=== PATIENT | male | born 1950 | race Caucasian/White ===

== ENCOUNTER 2016-11-16 12:11 | Emergency (ER) | payer MEDICARE ==
[~2016-11-16 12:11] MED LIST: Sodium Chloride 0.9% 1,000 ML BAG ONE
[2016-11-16] MEDS ORDERED: Diphenoxylate HCl/Atropine Tablet ONE (12:50)
[2016-11-16] MEDS ORDERED: Metoclopramide HCl 10 MG/2 ML VIAL ONE (12:51)
[2016-11-16] MEDS ORDERED: Ondansetron HCl/PF 4 MG/2 ML Vial ONE (12:51)
[2016-11-16 13:18] LABS: #Basophils 0.1 thou/uL (0.0-0.2); #Eosinphils 0.2 thou/uL (0.0-0.7); #Monocytes 0.6 thou/uL (0.11-0.59); #Neutrophils 7.6 thou/uL (1.40-6.50); %Basophils 0.8 % (0.0-1.0); %Eosinophils 1.7 % (0.0-10.0); %Lymphocytes 10.9 % (21.0-51.0); %Monocytes 6.1 % (0.0-10.0); %Neutrophils 80.5 % (42.0-75.0); Hemoglobin 17.6 g/dL (14.0-18.0); Mean Corpuscular HGB CONC 32.8 g/dL (32.0-36.0); Mean Corpuscular Hemoglobin 30.2 pg (27.0-31.0); Mean Corpuscular Volume 92.1 fl (80.0-94.0); Mean Platelet Volume 8.1 fL (7.4-10.4); Platelet Count 262 thou/uL (130-400); RBC Distribution Width 12.1 % (11.5-14.5); Red Blood Cell (RBC) Count 5.82 mill/uL (4.70-6.10); White Blood Cell (WBC) Count 9.5 thou/uL (4.8-10.8)
[2016-11-16 13:33] LABS: ALT (SGPT) 37 U/L (0-55); AST (SGOT) 27 U/L (5-34); Albumin 5.1 g/dL (3.4-4.8); Alkaline Phosphatase 113 U/L (40-150); Amylase 100 U/L (25-125); Anion Gap 18 mmol/L (10-20); BUN (Urea Nitrogen) 17 mg/dL (8.4-25.7); Bilirubin, Total 1.1 mg/dL (0.2-1.2); Calc. Creatinine Clearance 0 mL/min (70-130); Calcium 10.3 mg/dL (7.8-10.44); Carbon Dioxide 24 mmol/L (23-31); Chloride 101 mmol/L (98-107); Estimated GFR-MDRD 61; Globulin 3.3 g/dL (2.4-3.5); Glucose 128 mg/dL (80-115); Lipase 48 U/L (8-78); Potassium 4.3 mmol/L (3.5-5.1); Protein, Total 8.4 g/dL (5.8-8.1); Sodium 139 mmol/L (136-145)
== END 2016-11-16 16:05 | disposition home or self-care (01) ==
LOC: MADERS 12:11
DX: R19.7 Diarrhea, unspecified (principal); R11.2 Nausea with vomiting, unspecified; E03.9 Hypothyroidism, unspecified; I10 Essential (primary) hypertension; F32.9 Major depressive disorder, single episode, unspecified; Z79.82 Long term (current) use of aspirin; Z79.899 Other long term (current) drug therapy
CPT/HCPCS: 80053; 82150; 83690; 85025; 96361; 96374; 96375; J2405; J2765; J7050

== ENCOUNTER 2017-03-23 09:53 | Outpatient (CLI) | payer MEDICARE ==
[2017-03-23 10:42] LABS: ALT (SGPT) 32 U/L (8-55); AST (SGOT) 23 U/L (5-34); Albumin 4.4 g/dL (3.4-4.8); Alkaline Phosphatase 84 U/L (40-150); Anion Gap 13 mmol/L (10-20); BUN (Urea Nitrogen) 22 mg/dL (8.4-25.7); Bilirubin, Total 0.8 mg/dL (0.2-1.2); Calc. Creatinine Clearance 0 mL/min (70-130); Calcium 9.3 mg/dL (7.8-10.44); Carbon Dioxide 26 mmol/L (23-31); Cardiac Risk 7.1 (Less than 4.5); Chloride 102 mmol/L (98-107); Cholesterol 240 mg/dl (< 200 Desired); Estimated GFR-MDRD 86; Globulin 3.3 g/dL (2.4-3.5); Glucose 109 mg/dL (80-115); HDL Cholesterol 34 mg/dL (>60 Neg Risk); LDL Cholesterol, Calculated 177 mg/dL; Potassium 4.1 mmol/L (3.5-5.1); Protein, Total 7.7 g/dL (5.8-8.1); Sodium 137 mmol/L (136-145); Triglycerides 147 mg/dL (Less than 150)
[2017-03-23 10:59] LABS: Free T4 (Free Thyroxine) 1.21 ng/dL (0.70-1.48); Thyroid Stimulating Hormone 2.2058 uIU/mL (0.35-4.94)
== END 2017-03-23 09:54 | disposition home or self-care (01) ==
LOC: MADLAB 09:53
PROVIDERS: ATTEND Internal Medicine Endocrinology, Diabetes & Metabolism
DX: E89.0 Postprocedural hypothyroidism (principal); C73 Malignant neoplasm of thyroid gland
CPT/HCPCS: 36415; 80053; 80061; 84439; 84443

== ENCOUNTER 2017-09-30 12:16 | Emergency (ER) | payer MEDICARE ==
[~2017-09-30 12:16] MED LIST changes: -Sodium Chloride 0.9% 1,000 ML BAG ONE; +Sodium Chloride Irrig Solution 250 ML BOT ONE
--- NOTE | 2017-09-30 14:52 | RAD ---
THREE VIEWS OF THE RIGHT MIDDLE FINGER. COMPARISON: None. HISTORY: Middle finger injury with pain and swelling. FINDINGS: Three views of the right middle finger show a comminuted fracture of the tuft of the distal phalanx w ith overlying soft tissue swelling. No dislocation is seen. IMPRESSION: Comminuted fracture of the tuft of the distal phalanx. POS: NNEKA
[2017-09-30] MEDS ORDERED: Adacel (T-DAP) 0.5 ML VIAL ONE (16:13)
[2017-09-30] MEDS ORDERED: HYDROcodone/Acetaminophen 10/325 mg Tablet ONE (16:16)
[2017-09-30] MEDS ORDERED: Cephalexin 250 MG/5 ML Oral Suspension ONE (16:16)
[2017-09-30] MEDS ORDERED: Naproxen 500 MG TAB ONE (16:16)
[2017-09-30] MEDS ORDERED: Cephalexin 500 MG CAP ONE (16:17)
== END 2017-09-30 16:15 | disposition home or self-care (01) ==
LOC: MADERS 12:16
DX: S62.632A Displaced fracture of distal phalanx of right middle finger, initial encounter for closed fracture (principal); E03.9 Hypothyroidism, unspecified; I10 Essential (primary) hypertension; F32.9 Major depressive disorder, single episode, unspecified; Z79.899 Other long term (current) drug therapy; W31.89XA Contact with other specified machinery, initial encounter
CPT/HCPCS: 90471; 90715

== ENCOUNTER 2018-05-08 10:40 | Outpatient (CLI) | payer MEDICARE ==
--- NOTE | 2018-05-08 12:06 | RAD ---
LEFT KNEE 4 VIEWS: Date: 05/08/18 HISTORY: Chronic left knee pain. FINDINGS/IMPRESSION: There are mild to moderate degenerative changes. No fracture, dislocation, or bony destruction is see n. POS: OFF
== END 2018-05-08 10:41 | disposition home or self-care (01) ==
LOC: MADLAB 10:40
PROVIDERS: ATTEND Family Medicine
DX: M25.562 Pain in left knee (principal); M17.12 Unilateral primary osteoarthritis, left knee

== ENCOUNTER 2019-11-13 11:05 | Outpatient (CLI) | payer MEDICARE ==
--- NOTE | 2019-11-13 11:55 | RAD ---
PA AND LATERAL VIEWS CHEST: Date: 11/13/2019 HISTORY: Dyspnea on exertion. COMPARISON: 01/07/2015. FINDINGS/IMPRESSION: The heart size is enlarged. The lungs are expanded without lobar consolidation, pneumothoraces, or la rge effusions. There is mild prominence of the pulmonary vascularity. POS: NNEKAH
== END 2019-11-13 11:06 | disposition home or self-care (01) ==
LOC: MADRAD 11:05
PROVIDERS: ATTEND Family Medicine
DX: R06.09 Other forms of dyspnea (principal); J98.4 Other disorders of lung
CPT/HCPCS: 71046

== ENCOUNTER 2019-11-23 14:01 | Emergency (ER) | payer MEDICARE ==
[~2019-11-23 14:01] MED LIST changes: +Iopamidol 370 76% 125 ML VIAL FS ONE; -Sodium Chloride Irrig Solution 250 ML BOT ONE
--- NOTE | 2019-11-23 15:21 | RAD ---
Chest one view HISTORY: Dyspnea. COMPARISON: 11/13/2019. FINDINGS: Cardiac silhouette is magnified, enlarged, and partially obscured by chronic opacity at the left base. Mediastinum is midline. Pulmonary vasculature remains engorged. Upper lobes are clear. No evidence of pneumothorax. IMPRESSION: Pulmonary vascular congestion and cardiomegaly. Chronic-type findings are stable.
[2019-11-23 15:41] LABS: #Basophils 0.1 thou/uL (0.0-0.2); #Eosinphils 0.2 thou/uL (0.0-0.7); #Lymphocytes 0.9 thou/uL (1.20-3.40); #Monocytes 0.5 thou/uL (0.11-0.59); #Neutrophils 4.9 thou/uL (1.40-6.50); %Basophils 1.1 % (0.0-1.0); %Eosinophils 2.7 % (0.0-10.0); %Lymphocytes 13.4 % (21.0-51.0); %Monocytes 8.1 % (0.0-10.0); %Neutrophils 74.7 % (42.0-75.0); Hemoglobin 15.8 g/dL (14.0-18.0); Mean Corpuscular HGB CONC 30.8 g/dL (32.0-36.0); Mean Corpuscular Hemoglobin 28.9 pg (27.0-31.0); Mean Corpuscular Volume 93.8 fL (78.0-98.0); Platelet Count 237 thou/uL (130-400); RBC Distribution Width 13.2 % (11.5-14.5); Red Blood Cell (RBC) Count 5.47 mill/uL (4.70-6.10); White Blood Cell (WBC) Count 6.5 thou/uL (4.8-10.8)
[2019-11-23 15:58] LABS: ALT (SGPT) 130 U/L (8-55); AST (SGOT) 96 U/L (5-34); Albumin 4.2 g/dL (3.4-4.8); Alkaline Phosphatase 92 U/L (40-110); Anion Gap 15 mmol/L (10-20); BUN (Urea Nitrogen) 19 mg/dL (8.4-25.7); Bilirubin, Total 0.6 mg/dL (0.2-1.2); Calc. Creatinine Clearance 0 mL/min (70-130); Calcium 8.6 mg/dL (7.8-10.44); Carbon Dioxide 23 mmol/L (23-31); Chloride 110 mmol/L (98-107); Estimated GFR-MDRD 54; Globulin 2.4 g/dL (2.4-3.5); Glucose 109 mg/dL (80-115); Potassium 4.2 mmol/L (3.5-5.1); Protein, Total 6.6 g/dL (5.8-8.1); Sodium 144 mmol/L (136-145)
[2019-11-23 16:18] LABS: CKMB 2.2 ng/mL (0-6.6)
--- NOTE | 2019-11-23 16:54 | CT ---
[facility] COMPARISON:None available HISTORY:Shortness of breath, elevated d-dimer TECHNIQUE: Serial axial CT imaging at2.5 mm intervals from thethoracic inlet through the upper abdome n with IV contrast using CT angiogram protocol. Coronal and oblique sagittal 3-D reformatted imaging obtained. Findings:There is no axillary lymphadenopathy noted. The heart is prominent. The imaged upper abdomen demonstrates a small hiatal hernia. Soft tissue density in the subcarinal region suggests mild lymphadenopathy, measuring up to 1.5 cm in short axis dimension. Mildly enlarged 1 cm AP window lymph node noted. Mildly enlarged prevascular node measures 1.1 cm. Multiple mildly enlarged superior mediastinal lymph nodes are noted, measuring up to 1.2 cm in short axis dimension. There are small bilateral pleural effusions, right larger than left. No significant pericardial or me diastinal fluid. No discrete pulmonary arterial filling defect is seen to suggest the presence of acute pulmonary gino rial embolism. There is mild linear interstitial density in the perihilar regions and both lung bases. No alveolar o pacity/groundglass opacity. No focal consolidation. Review of the osseous structures demonstrates no worrisome lytic or blastic bone lesion. IMPRESSION: Small bilateral pleural effusions with mild bibasilar and perihilar interstitial prominen ce. Findings suggest pulmonary edema in the proper clinical setting. No evidence for acute pulmonary arterial embolism. Nonspecific lymphadenopathy noted within the mediastinum. This may be reactive in nature. Clinical co rrelation is essential. Recommend follow-up CT examination of the chest in 3 months. CODE T
[2019-11-23] MEDS ORDERED: Furosemide 40 MG/4 ML VIAL ONE (17:27)
[2019-11-23] MEDS ORDERED: Aspirin Chewable 81 MG TAB ONE (17:27)
== END 2019-11-23 18:38 | disposition short-term general hospital (02) ==
LOC: MADERS 14:01
DX: I11.0 Hypertensive heart disease with heart failure (principal); I50.9 Heart failure, unspecified; E03.9 Hypothyroidism, unspecified; F32.9 Major depressive disorder, single episode, unspecified; Z79.899 Other long term (current) drug therapy
CPT/HCPCS: 71045; 71275; 80053; 82553; 83880; 84484; 85025; 85379; 93005; 96374; J1940; Q9967

== ENCOUNTER 2020-12-26 08:54 | Emergency (ER) | payer MEDICARE | END 2020-12-26 09:35 | disposition home or self-care (01) | LOC: MADERS 08:54 | DX: M54.5 Low back pain (principal); E03.9 Hypothyroidism, unspecified; I10 Essential (primary) hypertension; I25.10 Atherosclerotic heart disease of native coronary artery without angina pectoris; Z79.899 Other long term (current) drug therapy | CPT/HCPCS: 99283 ==

== ENCOUNTER 2021-06-10 14:16 | Emergency (ER) | payer MEDICARE ==
[2021-06-10] MEDS ORDERED: Lactated Ringer's 1,000 ML ONE (15:06)
[2021-06-10 15:10] LABS: #Basophils 0.1 thou/uL (0.0-0.2); #Eosinphils 0.2 thou/uL (0.0-0.7); #Lymphocytes 1.1 thou/uL (1.20-3.40); #Monocytes 0.4 thou/uL (0.11-0.59); #Neutrophils 3.6 thou/uL (1.40-6.50); %Basophils 1.5 % (0.0-1.0); %Eosinophils 3.2 % (0.0-10.0); %Lymphocytes 20.6 % (21.0-51.0); %Monocytes 7.4 % (0.0-10.0); %Neutrophils 67.3 % (42.0-75.0); Hemoglobin 15.3 g/dL (14.0-18.0); Mean Corpuscular HGB CONC 32.4 g/dL (32.0-36.0); Mean Corpuscular Volume 92.6 fL (78.0-98.0); Mean Platelet Volume 7.4 fL (7.4-10.4); Platelet Count 298 thou/uL (130-400); RBC Distribution Width 11.9 % (11.5-14.5); Red Blood Cell (RBC) Count 5.09 mill/uL (4.70-6.10); White Blood Cell (WBC) Count 5.4 thou/uL (4.8-10.8)
[2021-06-10 15:27] LABS: ALT (SGPT) 22 U/L (8-55); AST (SGOT) 18 U/L (5-34); Albumin 3.9 g/dL (3.4-4.8); Alkaline Phosphatase 82 U/L (40-110); Anion Gap 16 mmol/L (10-20); BUN (Urea Nitrogen) 18 mg/dL (8.4-25.7); Bilirubin, Total 0.5 mg/dL (0.2-1.2); Calc. Creatinine Clearance 0 mL/min (70-130); Calcium 9.1 mg/dL (7.8-10.44); Carbon Dioxide 21 mmol/L (23-31); Chloride 104 mmol/L (98-107); Globulin 2.7 g/dL (2.4-3.5); Glucose 115 mg/dL (83-110); Potassium 3.4 mmol/L (3.5-5.1); Protein, Total 6.6 g/dL (5.8-8.1); Sodium 138 mmol/L (136-145)
== END 2021-06-10 19:30 | disposition home or self-care (01) ==
LOC: MADERS 14:16
DX: I95.1 Orthostatic hypotension (principal); E55.9 Vitamin D deficiency, unspecified; I48.91 Unspecified atrial fibrillation; E03.9 Hypothyroidism, unspecified; I11.0 Hypertensive heart disease with heart failure; I50.9 Heart failure, unspecified; Z85.850 Personal history of malignant neoplasm of thyroid; Z79.899 Other long term (current) drug therapy
CPT/HCPCS: 36415; 71045; 80053; 83605; 83735; 84443; 84484; 85025; 93005; J7120

== ENCOUNTER 2021-07-05 07:33 | Outpatient (CLI) | payer MEDICARE ==
[2021-07-05 08:55] LABS: #Basophils 0.1 thou/uL (0.0-0.2); #Eosinphils 0.3 thou/uL (0.0-0.7); #Lymphocytes 0.8 thou/uL (1.20-3.40); #Monocytes 0.5 thou/uL (0.11-0.59); #Neutrophils 4.1 thou/uL (1.40-6.50); %Basophils 1.2 % (0.0-1.0); %Eosinophils 5.7 % (0.0-10.0); %Lymphocytes 13.8 % (21.0-51.0); %Monocytes 8.8 % (0.0-10.0); %Neutrophils 70.5 % (42.0-75.0); Hemoglobin 15.3 g/dL (14.0-18.0); Mean Corpuscular HGB CONC 31.7 g/dL (32.0-36.0); Mean Corpuscular Hemoglobin 29.8 pg (27.0-31.0); Mean Corpuscular Volume 93.9 fL (78.0-98.0); Mean Platelet Volume 8.5 fL (7.4-10.4); Platelet Count 278 thou/uL (130-400); RBC Distribution Width 12.1 % (11.5-14.5); Red Blood Cell (RBC) Count 5.14 mill/uL (4.70-6.10); White Blood Cell (WBC) Count 5.8 thou/uL (4.8-10.8)
[2021-07-05 09:09] LABS: ALT (SGPT) 22 U/L (8-55); AST (SGOT) 19 U/L (5-34); Albumin 4.1 g/dL (3.4-4.8); Alkaline Phosphatase 83 U/L (40-110); Anion Gap 13 mmol/L (10-20); BUN (Urea Nitrogen) 15 mg/dL (8.4-25.7); Bilirubin, Total 0.6 mg/dL (0.2-1.2); Calc. Creatinine Clearance 0 mL/min (70-130); Calcium 9.7 mg/dL (7.8-10.44); Carbon Dioxide 27 mmol/L (23-31); Cardiac Risk 5.5 (Less than 4.5); Chloride 105 mmol/L (98-107); Cholesterol 181 mg/dl (< 200 Desired); Globulin 3.1 g/dL (2.4-3.5); Glucose 105 mg/dL (83-110); HDL Cholesterol 33 mg/dL (>60 Neg Risk); LDL Cholesterol, Calculated 132 mg/dL; Protein, Total 7.2 g/dL (5.8-8.1); Sodium 141 mmol/L (136-145); Triglycerides 82 mg/dL (Less than 150)
== END 2021-07-05 07:34 | disposition home or self-care (01) ==
LOC: MADLAB 07:33
PROVIDERS: ATTEND Family Medicine
DX: E78.5 Hyperlipidemia, unspecified (principal); E03.9 Hypothyroidism, unspecified
CPT/HCPCS: 36415; 80053; 80061; 84443; 85025

== ENCOUNTER 2022-04-09 23:09 | Emergency (ER) | payer MEDICARE ==
[2022-04-10] MEDS ORDERED: HYDROcodone/Acetaminophen 5/325 mg Tablet ONE (00:21)
[2022-04-10] MEDS ORDERED: predniSONE 20 MG TAB ONE (00:21)
== END 2022-04-10 00:35 | disposition home or self-care (01) ==
LOC: MADERS 23:09
DX: M54.42 Lumbago with sciatica, left side (principal); I48.91 Unspecified atrial fibrillation; I25.10 Atherosclerotic heart disease of native coronary artery without angina pectoris; I11.0 Hypertensive heart disease with heart failure; I50.9 Heart failure, unspecified; E03.9 Hypothyroidism, unspecified; M19.90 Unspecified osteoarthritis, unspecified site; G47.33 Obstructive sleep apnea (adult) (pediatric); E55.9 Vitamin D deficiency, unspecified; Z85.850 Personal history of malignant neoplasm of thyroid; Z79.01 Long term (current) use of anticoagulants; Z79.899 Other long term (current) drug therapy; Z95.0 Presence of cardiac pacemaker
CPT/HCPCS: 99283; J7512

== ENCOUNTER 2022-04-13 23:47 | Emergency (ER) | payer MEDICARE ==
[~2022-04-13 23:47] MED LIST changes: +Iopamidol 370 76% 100 ML VIAL ONE; -Iopamidol 370 76% 125 ML VIAL FS ONE
[2022-04-14 00:19] LABS: #Lymphocytes 1.3 thou/uL (1.20-3.40); #Monocytes 0.5 thou/uL (0.11-0.59); #Neutrophils 8.2 thou/uL (1.40-6.50); %Basophils 0.5 % (0.0-1.0); %Eosinophils 0.1 % (0.0-10.0); %Lymphocytes 12.6 % (21.0-51.0); %Monocytes 4.8 % (0.0-10.0); %Neutrophils 81.9 % (42.0-75.0); Hemoglobin 15.2 g/dL (14.0-18.0); Mean Corpuscular HGB CONC 32.1 g/dL (32.0-36.0); Mean Corpuscular Volume 93.7 fL (78.0-98.0); Mean Platelet Volume 9.3 fL (7.4-10.4); Platelet Count 255 thou/uL (130-400); RBC Distribution Width 13.2 % (11.5-14.5); Red Blood Cell (RBC) Count 5.07 mill/uL (4.70-6.10)
[2022-04-14 00:36] LABS: Base Excess-Venous -2.2 mmol/L (-2.0 to 3.0); Bicarbonate (HCO3v) 23.3 mmol/L (22.0-28.0); CO2 Tension (PvCO2) 41.8 mmHg (42.0-51.0); Calcium, Ionized 1.13 mmol/L (1.15-1.33); Chloride 104 mmol/L (98-107); Hemoglobin - Calc 16.8 g/dL (14.0-18.0); Potassium 4.2 mmol/L (3.5-5.1); Sodium 139 mmol/L (138-145); T. Carbon Dioxide 24.6 mmol/L (22.0-28.0); vO2 Saturation-calc 89.2 % (60.0-85.0)
[2022-04-14 00:42] LABS: ALT (SGPT) 1030 U/L (8-55); AST (SGOT) 647 U/L (5-34); Albumin 4.1 g/dL (3.4-4.8); Alkaline Phosphatase 256 U/L (40-110); Anion Gap 17 mmol/L (10-20); BUN (Urea Nitrogen) 41 mg/dL (8.4-25.7); Bilirubin, Total 1.7 mg/dL (0.2-1.2); Calc. Creatinine Clearance 0 mL/min (70-130); Calcium 8.9 mg/dL (7.8-10.44); Carbon Dioxide 23 mmol/L (23-31); Chloride 102 mmol/L (98-107); Estimated GFR 44; Globulin 2.6 g/dL (2.4-3.5); Glucose 161 mg/dL (83-110); Lipase 31 U/L (8-78); Magnesium 2.6 mg/dL (1.6-2.6); Potassium 4.4 mmol/L (3.5-5.1); Protein, Total 6.7 g/dL (5.8-8.1); Sodium 138 mmol/L (136-145)
[2022-04-14 01:03] LABS: CKMB 1.8 ng/mL (0-6.6)
[2022-04-14 01:14] LABS: SARS-CoV-2 NAA Rapid Test DETECTED (NotDetected)
[2022-04-14] MEDS ORDERED: Furosemide 40 MG/4 ML VIAL ONE (01:16)
[2022-04-14 01:40] LABS: Alcohol Less than 10 mg/dL (Less than 10); Salicylate Less than 8.0 mg/dL (15.0-30.0)
== END 2022-04-14 03:05 | disposition short-term general hospital (02) ==
LOC: MADERS 23:47
DX: U07.1 COVID-19 (principal); I11.0 Hypertensive heart disease with heart failure; I50.9 Heart failure, unspecified; K72.00 Acute and subacute hepatic failure without coma; R77.8 Other specified abnormalities of plasma proteins; I48.91 Unspecified atrial fibrillation; I25.10 Atherosclerotic heart disease of native coronary artery without angina pectoris; E03.9 Hypothyroidism, unspecified; M19.90 Unspecified osteoarthritis, unspecified site; G47.30 Sleep apnea, unspecified; E55.9 Vitamin D deficiency, unspecified; Z85.850 Personal history of malignant neoplasm of thyroid; Z79.01 Long term (current) use of anticoagulants; Z79.899 Other long term (current) drug therapy
CPT/HCPCS: 71045; 74177; 80053; 80307; 82330; 82435; 82553; 82803; 83690; 83735; 83880; 84132; 84295; 84484; 85014; 85025; 93005; U0002; 96374; J1940; Q9967

== ENCOUNTER 2022-11-27 18:52 | Emergency (ER) | payer MEDICARE ==
[2022-11-27 19:39] LABS: #Eosinphils 0.3 thou/uL (0.0-0.7); #Lymphocytes 0.5 thou/uL (1.20-3.40); #Monocytes 0.5 thou/uL (0.11-0.59); #Neutrophils 2.6 thou/uL (1.40-6.50); %Eosinophils 7.7 % (0.0-10.0); %Lymphocytes 12.5 % (21.0-51.0); %Monocytes 13.1 % (0.0-10.0); %Neutrophils 65.7 % (42.0-75.0); Hemoglobin 11.4 g/dL (14.0-18.0); Mean Corpuscular HGB CONC 34.4 g/dL (32.0-36.0); Mean Corpuscular Hemoglobin 31.8 pg (27.0-31.0); Mean Corpuscular Volume 92.6 fl (78.0-98.0); Mean Platelet Volume 5.2 fL (7.4-10.4); Platelet Count 175 10x3/uL (130-400); RBC Distribution Width 17.8 % (11.5-14.5); Red Blood Cell (RBC) Count 3.59 mill/uL (4.70-6.10); White Blood Cell (WBC) Count 3.9 10x3/uL (4.8-10.8)
[2022-11-27 19:49] LABS: INR-International Normal Ratio 2.1; Prothrombin Time 24.2 sec (12.0-14.7)
[2022-11-27 19:50] LABS: PTT 40.8 sec (22.9-36.1)
[2022-11-27 19:54] LABS: Anion Gap 10 mmol/L (10-20); BUN (Urea Nitrogen) 16 mg/dL (8.4-25.7); Calc. Creatinine Clearance 0 mL/min (70-130); Calcium 8.2 mg/dL (7.8-10.44); Carbon Dioxide 31 mmol/L (23-31); Chloride 102 mmol/L (98-107); Estimated GFR 88; Glucose 111 mg/dL (83-110); Potassium 3.7 mmol/L (3.5-5.1); Sodium 139 mmol/L (136-145)
[2022-11-27 20:43] LABS: Bilirubin Negative (Negative); Blood, Urine Negative (Negative); Clarity Clear (Clear); Glucose, Urine (Dipstick) 500 mg/dL (Negative); Ketone, Urine Negative (Negative); Leukocyte Negative (Negative); Nitrite Negative (Negative); Protein, Urine (Dipstick) 30 mg/dL (Neg-Trace); Specific Gravity, Urine 1.015 (1.005-1.030); Urobilinogen 0.2 mg/dL (Less than 2)
[2022-11-27 20:52] LABS: Bacteria/HPF None Seen HPF (None Seen); RBC/HPF 0-3 HPF (0-3); Squamous Epithelial 0-3 HPF (0-3)
== END 2022-11-27 21:27 | disposition home or self-care (01) ==
LOC: MADERS 18:52
DX: K59.00 Constipation, unspecified (principal); R33.9 Retention of urine, unspecified; I48.91 Unspecified atrial fibrillation; I25.10 Atherosclerotic heart disease of native coronary artery without angina pectoris; E03.9 Hypothyroidism, unspecified; I11.0 Hypertensive heart disease with heart failure; I50.9 Heart failure, unspecified; M19.90 Unspecified osteoarthritis, unspecified site; G47.30 Sleep apnea, unspecified; E55.9 Vitamin D deficiency, unspecified; Z79.01 Long term (current) use of anticoagulants; Z79.82 Long term (current) use of aspirin; Z79.899 Other long term (current) drug therapy; Z85.46 Personal history of malignant neoplasm of prostate; Z85.850 Personal history of malignant neoplasm of thyroid
CPT/HCPCS: 51702; 74018; 80048; 81003; 81015; 85025; 85610; 85730

== ENCOUNTER 2023-06-16 15:13 | Emergency (ER) | payer MEDICARE ==
[2023-06-16 16:09] LABS: Bilirubin Negative (Negative); Blood, Urine Negative (Negative); Clarity Clear (Clear); Glucose, Urine (Dipstick) >=1000 mg/dL (Negative); Ketone, Urine Negative (Negative); Leukocyte Negative (Negative); Nitrite Negative (Negative); Protein, Urine (Dipstick) Negative (Neg-Trace); Urobilinogen 0.2 mg/dL (Less than 2)
[2023-06-16 16:11] LABS: CAUTI Indications for Culture Dysuria,urgency,freq
[2023-06-16 16:15] LABS: Bacteria/HPF Rare-Few HPF (None Seen); RBC/HPF 0-3 HPF (0-3); Squamous Epithelial 0-3 HPF (0-3); WBC/HPF 0-3 HPF (0-3)
[2023-06-16 16:16] LABS: Urine Culture Reflex No No
== END 2023-06-16 16:30 | disposition home or self-care (01) ==
LOC: MADERS 15:13
DX: Z46.6 Encounter for fitting and adjustment of urinary device (principal); R39.11 Hesitancy of micturition; E11.9 Type 2 diabetes mellitus without complications; I48.91 Unspecified atrial fibrillation; I25.10 Atherosclerotic heart disease of native coronary artery without angina pectoris; E03.9 Hypothyroidism, unspecified; I11.0 Hypertensive heart disease with heart failure; I50.9 Heart failure, unspecified; G47.30 Sleep apnea, unspecified; M19.90 Unspecified osteoarthritis, unspecified site; E55.9 Vitamin D deficiency, unspecified; Z79.82 Long term (current) use of aspirin; Z79.899 Other long term (current) drug therapy; Z95.0 Presence of cardiac pacemaker
CPT/HCPCS: 51702; 81001

== ENCOUNTER 2023-09-23 15:28 | Emergency (ER) | payer MEDICARE ==
[2023-09-23] MEDS ORDERED: Silver Nitrate Application 1 EACH ONE (15:44)
== END 2023-09-23 16:14 | disposition home or self-care (01) ==
LOC: MADERS 15:28
DX: R04.0 Epistaxis (principal); E03.9 Hypothyroidism, unspecified; E11.9 Type 2 diabetes mellitus without complications; I11.0 Hypertensive heart disease with heart failure; I50.9 Heart failure, unspecified; Z79.899 Other long term (current) drug therapy; Z79.01 Long term (current) use of anticoagulants; Z79.82 Long term (current) use of aspirin
CPT/HCPCS: 99283

== ENCOUNTER 2023-09-25 10:59 | Emergency (ER) | payer MEDICARE ==
[2023-09-25] MEDS ORDERED: Sodium Chloride 0.9% 500 ML ONE (11:34)
[2023-09-25 11:59] LABS: ALT (SGPT) 19 U/L (8-55); AST (SGOT) 21 U/L (5-34); Albumin 3.3 g/dL (3.4-4.8); Alkaline Phosphatase 229 U/L (40-110); Anion Gap 12 mmol/L (10-20); BUN (Urea Nitrogen) 35 mg/dL (8.4-25.7); Bilirubin, Total 1.3 mg/dL (0.2-1.2); Calc. Creatinine Clearance 0 mL/min (70-130); Calcium 8.5 mg/dL (7.8-10.44); Carbon Dioxide 23 mmol/L (23-31); Chloride 101 mmol/L (98-107); Estimated GFR 29; Globulin 2.2 g/dL (2.4-3.5); Glucose 117 mg/dL (83-110); Potassium 4.5 mmol/L (3.5-5.1); Protein, Total 5.5 g/dL (5.8-8.1); Sodium 131 mmol/L (136-145)
[2023-09-25 12:10] LABS: Hematocrit 33.5 % (42.0-52.0); Hemoglobin 11.1 g/dL (14.0-18.0); Mean Corpuscular HGB CONC 33.2 g/dL (32.0-36.0); Mean Corpuscular Volume 93.5 fl (78.0-98.0); Mean Platelet Volume 7.4 fL (7.4-10.4); Platelet Count 177 10x3/uL (130-400); Red Blood Cell (RBC) Count 3.58 mill/uL (4.70-6.10); White Blood Cell (WBC) Count 0.4 10x3/uL (4.8-10.8)
[2023-09-25] MEDS ORDERED: Sodium Chloride 0.9% 1,000 ML ONE (12:29)
[2023-09-25 12:48] LABS: SARS-CoV-2 NAA Rapid Test Not Detected (NotDetected)
[2023-09-25 12:51] LABS: MDiff Complete? YES; Manual Diff?? YES
[2023-09-25 12:52] LABS: Band 4 % (5-11); Lymphocytes 58 % (21-51); Monocytes 30 % (0-10); Neutrophil 8 % (42-75)
[2023-09-25 12:53] LABS: Anisocytosis SLIGHT = 6-15 cells (100X) (0-5/hpf); Platelet Adequacy Comment Appears Adequate
== END 2023-09-25 14:00 | disposition home or self-care (01) ==
LOC: MADERS 10:59
DX: N28.9 Disorder of kidney and ureter, unspecified (principal); E86.0 Dehydration; E87.1 Hypo-osmolality and hyponatremia; D72.819 Decreased white blood cell count, unspecified; Z92.21 Personal history of antineoplastic chemotherapy; E11.9 Type 2 diabetes mellitus without complications; E03.9 Hypothyroidism, unspecified; K21.9 Gastro-esophageal reflux disease without esophagitis; I11.0 Hypertensive heart disease with heart failure; I50.9 Heart failure, unspecified
CPT/HCPCS: 71046; 80053; 83605; 83735; 85025; 87081; 87430; 87804 ×2; U0002; 96360; J7030; J7050

== ENCOUNTER 2023-09-26 05:53 | Emergency (ER) | payer MEDICARE ==
[2023-09-26] MEDS ORDERED: Sodium Chloride 0.9% 1,000 ML ONE (06:11)
[2023-09-26 06:39] LABS: Anion Gap 16 mmol/L (10-20)
[2023-09-26 06:40] LABS: BUN (Urea Nitrogen) 42 mg/dL (8.4-25.7); Calc. Creatinine Clearance 0 mL/min (70-130); Calcium 8.1 mg/dL (7.8-10.44); Carbon Dioxide 17 mmol/L (23-31); Chloride 101 mmol/L (98-107); Estimated GFR 16; Glucose 107 mg/dL (83-110); Potassium 4.6 mmol/L (3.5-5.1); Sodium 129 mmol/L (136-145)
[2023-09-26 06:57] LABS: Critical Call w/ Read Back NUR.MNK @ 0637; Hematocrit 30.6 % (42.0-52.0); Hemoglobin 10.4 g/dL (14.0-18.0); Mean Corpuscular HGB CONC 33.8 g/dL (32.0-36.0); Mean Corpuscular Hemoglobin 31.5 pg (27.0-31.0); Mean Corpuscular Volume 93.2 fl (78.0-98.0); Mean Platelet Volume 7.5 fL (7.4-10.4); Platelet Count 178 10x3/uL (130-400); RBC Distribution Width 13.2 % (11.5-14.5); Red Blood Cell (RBC) Count 3.29 mill/uL (4.70-6.10)
[2023-09-26 06:58] LABS: Manual Diff?? YES
[2023-09-26 06:59] LABS: White Blood Cell (WBC) Count 0.6 10x3/uL (4.8-10.8)
[2023-09-26 07:02] LABS: Anisocytosis SLIGHT = 6-15 cells (100X) (0-5/hpf); Lymphocytes 54 % (21-51); MDiff Complete? YES; Monocytes 38 % (0-10); Neutrophil 8 % (42-75)
[2023-09-26 07:03] LABS: Platelet Adequacy Comment Appears Adequate
[2023-09-26] MEDS ORDERED: Sodium Chloride 0.9% 100 ML ONE (08:45)
[2023-09-26] MEDS ORDERED: Cefepime 1 GM VIAL ONE (08:45)
[2023-09-26] MEDS ORDERED: Acetaminophen 500 MG TAB ONE (10:01)
[2023-09-26 11:55] LABS: Bilirubin Small (Negative); Blood, Urine Negative (Negative); Glucose, Urine (Dipstick) 250 mg/dL (Negative); Ketone, Urine Trace mg/dL (Negative); Leukocyte Negative (Negative); Nitrite Negative (Negative); Protein, Urine (Dipstick) 30 mg/dL (Neg-Trace); Specific Gravity, Urine 1.025 (1.005-1.030); Urobilinogen 0.2 mg/dL (Less than 2)
[2023-09-26 12:04] LABS: Clarity Cloudy (Clear); RBC/HPF 0-3 HPF (0-3)
[2023-09-26 12:05] LABS: Bacteria/HPF 3+ HPF (None Seen); CAUTI Indications for Culture Dysuria,urgency,freq; WBC/HPF 0-3 HPF (0-3)
[2023-09-26 12:06] LABS: Urine Culture Reflex No No
== END 2023-09-26 11:36 | disposition short-term general hospital (02) ==
LOC: MADERS 05:53
DX: I13.0 Hypertensive heart and chronic kidney disease with heart failure and stage 1 through stage 4 chronic kidney disease, or unspecified chronic kidney disease (principal); E11.22 Type 2 diabetes mellitus with diabetic chronic kidney disease; N18.9 Chronic kidney disease, unspecified; I50.1 Left ventricular failure, unspecified; N17.9 Acute kidney failure, unspecified; J10.1 Influenza due to other identified influenza virus with other respiratory manifestations; D49.59 Neoplasm of unspecified behavior of other genitourinary organ; D70.9 Neutropenia, unspecified; R50.81 Fever presenting with conditions classified elsewhere; I48.91 Unspecified atrial fibrillation; I25.10 Atherosclerotic heart disease of native coronary artery without angina pectoris; Z95.0 Presence of cardiac pacemaker
CPT/HCPCS: 51702; 51798; 80048; 81001; 83605; 85025; 87040; 96361; 96365; J0692; J3490; J7050

== ENCOUNTER 2024-02-22 12:00 | Emergency (ER) | payer MEDICARE | END 2024-02-22 12:52 | disposition home or self-care (01) | LOC: MADERS 12:00 | DX: L03.012 Cellulitis of left finger (principal); I48.91 Unspecified atrial fibrillation; E11.9 Type 2 diabetes mellitus without complications; E03.9 Hypothyroidism, unspecified; K21.9 Gastro-esophageal reflux disease without esophagitis; I25.10 Atherosclerotic heart disease of native coronary artery without angina pectoris; I11.0 Hypertensive heart disease with heart failure; I50.9 Heart failure, unspecified; Z79.899 Other long term (current) drug therapy; Z79.01 Long term (current) use of anticoagulants; Z79.84 Long term (current) use of oral hypoglycemic drugs; Z79.82 Long term (current) use of aspirin; Z55.6 Problems related to health literacy | CPT/HCPCS: 99283 ==

== ENCOUNTER 2024-04-30 09:49 | Emergency (ER) | payer MEDICARE, OTHER ==
[2024-04-30] MEDS ORDERED: Acetaminophen 500 MG TAB ONE (10:15)
[2024-04-30] MEDS ORDERED: cefTRIAXone (ROCEPHIN) 1 GM VIAL ONE (10:16)
[2024-04-30] MEDS ORDERED: Azithromycin 500 MG VIAL ONE (10:16)
[2024-04-30] MEDS ORDERED: Naloxone HCl 0.4 mg/ml Vial ONE (10:16)
[2024-04-30 10:17] LABS: #Eosinphils 0.1 thou/uL (0.0-0.7); #Lymphocytes 0.7 thou/uL (1.20-3.40); #Monocytes 0.8 thou/uL (0.11-0.59); #Neutrophils 6.5 thou/uL (1.40-6.50); %Basophils 0.4 % (0.0-1.0); %Eosinophils 1.2 % (0.0-10.0); %Lymphocytes 8.7 % (21.0-51.0); %Monocytes 9.8 % (0.0-10.0); Hematocrit 39.5 % (42.0-52.0); Hemoglobin 12.2 g/dL (14.0-18.0); Mean Corpuscular HGB CONC 30.8 g/dL (32.0-36.0); Mean Corpuscular Hemoglobin 30.3 pg (27.0-31.0); Mean Corpuscular Volume 98.2 fl (78.0-98.0); Mean Platelet Volume 5.5 fL (7.4-10.4); Platelet Count 201 10x3/uL (130-400); RBC Distribution Width 14.7 % (11.5-14.5); Red Blood Cell (RBC) Count 4.02 mill/uL (4.70-6.10); White Blood Cell (WBC) Count 8.1 10x3/uL (4.8-10.8)
[2024-04-30 10:35] LABS: ALT (SGPT) 19 U/L (8-55); AST (SGOT) 24 U/L (5-34); Albumin 3.3 g/dL (3.4-4.8); Alkaline Phosphatase 262 U/L (40-110); Anion Gap 18 mmol/L (10-20); BUN (Urea Nitrogen) 56 mg/dL (8.4-25.7); Bilirubin, Total 0.7 mg/dL (0.2-1.2); Calc. Creatinine Clearance 0 mL/min (70-130); Calcium 7.7 mg/dL (7.8-10.44); Carbon Dioxide 18 mmol/L (23-31); Chloride 104 mmol/L (98-107); Estimated GFR 15; Globulin 2.8 g/dL (2.4-3.5); Glucose 99 mg/dL (83-110); Potassium 4.6 mmol/L (3.5-5.1); Protein, Total 6.1 g/dL (5.8-8.1); Sodium 135 mmol/L (136-145)
[2024-04-30 10:36] LABS: Troponin I 0.016 ng/mL (< 0.028)
[2024-04-30 10:47] LABS: INR-International Normal Ratio 3.5; Prothrombin Time 35.6 sec (12.0-14.7)
[2024-04-30 10:48] LABS: PTT 53.1 sec (22.9-36.1)
== END 2024-04-30 11:32 | disposition short-term general hospital (02) ==
LOC: MADERS 09:49
DX: T40.2X1A Poisoning by other opioids, accidental (unintentional), initial encounter (principal); R41.82 Altered mental status, unspecified; A41.9 Sepsis, unspecified organism; E86.0 Dehydration; I25.10 Atherosclerotic heart disease of native coronary artery without angina pectoris; I11.0 Hypertensive heart disease with heart failure; I50.9 Heart failure, unspecified; K21.9 Gastro-esophageal reflux disease without esophagitis; E11.9 Type 2 diabetes mellitus without complications; E03.9 Hypothyroidism, unspecified; G47.33 Obstructive sleep apnea (adult) (pediatric); Z99.89 Dependence on other enabling machines and devices; Z79.899 Other long term (current) drug therapy; Z79.82 Long term (current) use of aspirin
CPT/HCPCS: 71045; 80053; 83605; 83880; 84484; 85025; 85610; 85730; 96374; 96375; J0456; J0696; J2310